=== PATIENT | female | born 1970 | race Caucasian/White ===

== ENCOUNTER → 2016-11-21 | Outpatient (CLI) | payer BC | END | disposition home or self-care (01) | LOC: CFH 15:48 | PROVIDERS: ATTEND Nurse Practitioner Family | DX: N85.8 Other specified noninflammatory disorders of uterus (principal); N83.202 Unspecified ovarian cyst, left side; N92.0 Excessive and frequent menstruation with regular cycle; R93.8 Abnormal findings on diagnostic imaging of other specified body structures; Z90.721 Acquired absence of ovaries, unilateral | CPT/HCPCS: 76830 ==

== ENCOUNTER 2020-02-22 18:11 | Emergency (ER) | payer OTHER ==
[~2020-02-22] VITALS: Ht 165.1 cm; Wt 79.0 kg
[2020-02-22 18:18] VITALS: BP 128/84
[2020-02-22] MEDS ORDERED: DIPH,PERTUSS(ACELL),TET VAC/PF 0.5 ML IM-VACC ONE ×2 (19:00→19:50)
--- NOTE | 2020-02-22 19:04 | NUR ---
pt w/ small head lac r forehead blding contrld irrigated w/ saline flushes pt denies loc neuros grossly intact. to ct. as
[2020-02-22] MEDS ORDERED: NEOSPORIN OINT. PKT 1 PACKET ONE (19:15)
--- NOTE | 2020-02-22 19:55 | NUR ---
ct neg plan for dc. as
== END 2020-02-22 20:38 | disposition home or self-care (01) ==
LOC: ED 20:00
DX: S01.81XA Laceration without foreign body of other part of head, initial encounter (principal); S60.511A Abrasion of right hand, initial encounter; S80.811A Abrasion, right lower leg, initial encounter; W18.30XA Fall on same level, unspecified, initial encounter; Y93.89 Activity, other specified; Y92.410 Unspecified street and highway as the place of occurrence of the external cause; Y99.8 Other external cause status
CPT/HCPCS: 12051; 70450; 90471; 90715; 99284